=== PATIENT | female | born 1980 | race Caucasian/White ===

== ENCOUNTER → 2019-04-04 | Outpatient (CLI) | payer BC ==
[2016-04-05 00:54] VITALS: BP 120/66
[~2019-04-04] MED LIST: FLOVENT HFA12 GM IH; NORCO 325 MG-51 TAB PO; PREDNISONE20 M1 PO; PRILOSEC 20MG20 MG PO; RT ALBUTEROL CC18 GM IH; TESSALON PERLE100 M1 PO; ZITHROMAX 250M250 MG PO; ZYRTEC ALLERGY10 MG PO
== END ==
LOC: RAD 08:02
DX: R30.0 Dysuria (principal)